=== PATIENT | female | born 1955 | race African-American/Black ===

== ENCOUNTER 2019-12-12 06:48 | Outpatient (CLI) | payer MEDICARE ==
--- NOTE | 2019-12-12 08:50 | ULT ---
ABDOMINAL ULTRASOUND: HISTORY: Upper abdominal pain. Fnd s Rela-time imaging of the upper abdomen shows a normal-appearing gallbladder. The common duct is norm al in caliber at 4 mm. The liver measures 17 cm in length. There is mild increased echogenicity. T he spleen is within normal limits of size measuring 7.9 cm. Right and left kidneys are normal in size and not obstructed. Pancreas, abdominal aorta, and IVC reg ions are unremarkable. IMPRESSION: Mild increased echogenicity of the liver raising the possibility of some fatty change. Otherwise, un remarkable exam. POS: [facility]RE[facility]
== END 2019-12-12 06:49 | disposition home or self-care (01) ==
LOC: BICULT 06:48
PROVIDERS: ATTEND Nurse Practitioner Family
DX: R10.10 Upper abdominal pain, unspecified (principal); R93.2 Abnormal findings on diagnostic imaging of liver and biliary tract
CPT/HCPCS: 93975

== ENCOUNTER 2021-02-04 08:15 | Outpatient (CLI) | payer MEDICARE | END 2021-02-04 08:16 | disposition home or self-care (01) | LOC: BICMAMMO 08:15 | PROVIDERS: ATTEND Nurse Practitioner Family | DX: Z12.31 Encounter for screening mammogram for malignant neoplasm of breast (principal) | CPT/HCPCS: 77063; 77067 ==

== ENCOUNTER 2023-04-22 09:35 | Outpatient (CLI) | payer MEDICARE | END 2023-04-22 09:36 | disposition home or self-care (01) | LOC: BICMAMMO 09:35 | PROVIDERS: ATTEND Family Medicine | DX: Z12.31 Encounter for screening mammogram for malignant neoplasm of breast (principal) | CPT/HCPCS: 77063; 77067 ==

== ENCOUNTER 2023-08-17 09:05 | Outpatient (CLI) | payer MEDICARE | END 2023-08-17 09:06 | disposition home or self-care (01) | LOC: BICMAMMO 09:05 | PROVIDERS: ATTEND Family Medicine | DX: Z13.820 Encounter for screening for osteoporosis (principal); E78.5 Hyperlipidemia, unspecified; E55.9 Vitamin D deficiency, unspecified; M85.851 Other specified disorders of bone density and structure, right thigh; M85.852 Other specified disorders of bone density and structure, left thigh; Z78.0 Asymptomatic menopausal state | CPT/HCPCS: 77080 ==

== ENCOUNTER 2024-03-05 13:26 | Emergency (ER) | payer MEDICARE ==
[2024-03-05 14:16] LABS: #Basophils Less than 0.03 10x3/uL (0.0-0.2); %Basophils 0.4 % (0.0-1.0); %Lymphocytes 56.1 % (21.0-51.0); %Monocytes 5.9 % (0.0-10.0); %Neutrophils 36.2 % (42.0-75.0); Hematocrit 39.4 % (36.0-47.0); Hemoglobin 12.6 g/dL (12.0-16.0); Mean Corpuscular Hemoglobin 28.6 pg (27.0-31.0); Mean Corpuscular Volume 89.5 fL (78.0-98.0); Mean Platelet Volume 10.6 fL (7.4-10.4); Platelet Count 238 10x3/uL (130-400); RBC Distribution Width 13.3 % (11.5-14.5)
[2024-03-05 14:33] LABS: ALT (SGPT) 14 U/L (8-55); AST (SGOT) 18 U/L (5-34); Alkaline Phosphatase 74 U/L (40-110); Anion Gap 18 mmol/L (10-20); BUN (Urea Nitrogen) 13 mg/dL (9.8-20.1); Bilirubin, Total 0.6 mg/dL (0.2-1.2); Calc. Creatinine Clearance 0 mL/min (70-130); Calcium 9.8 mg/dL (7.8-10.44); Carbon Dioxide 22 mmol/L (23-31); Chloride 107 mmol/L (98-107); Estimated GFR 69; Globulin 3.6 g/dL (2.4-3.5); Glucose 200 mg/dL (80-115); Potassium 4.5 mmol/L (3.5-5.1); Protein, Total 7.6 g/dL (5.8-8.1); Sodium 142 mmol/L (136-145)
[2024-03-05 14:39] LABS: Troponin I Less than 0.010 ng/mL (< 0.028)
[2024-03-05] MEDS ORDERED: hydrALAZINE 20 MG/ML VIAL ONE (16:08)
[2024-03-05] MEDS ORDERED: Ketorolac Tromethamine 30 MG (1 mL) VIAL ONE (17:00)
== END 2024-03-05 17:05 | disposition home or self-care (01) ==
LOC: ERS 13:26
DX: I10 Essential (primary) hypertension (principal); E11.9 Type 2 diabetes mellitus without complications; Z79.84 Long term (current) use of oral hypoglycemic drugs
CPT/HCPCS: 71045; 80053; 84484; 85025; 93005; 94760; J0360; J1885; 96374; 96375